=== PATIENT | female | born 1945 | race Asian ===

== ENCOUNTER 2017-10-11 20:07 | Inpatient (IN) | payer OTHER ==
[~2017-10-11] VITALS: Ht 160 cm; Wt 49.0 kg
[2017-10-11 20:07] VITALS: BP_SYST 118
--- NOTE | 2017-10-11 20:07 | NUR ---
Patient to ER bed 1 to gown for evaluation. Side rails up. Report given to ACOSTA FAYE.
--- NOTE | 2017-10-11 20:10 | NUR ---
Pt ambulated into ED AAOx4 c/o general weakness and gradual onset R sided SUÁREZ with R eye droop. Pt mandarin-speaking only. Pt denies N/V/D/visual changes/ slurred speech/SOB/KO. R eye droop present during interview. VSS osiris. No other injuries/complaints per pt/noted. Daughter at bedside. Will continue to monitor.
--- NOTE | 2017-10-11 20:19 | NUR ---
ER Dr. Saul at bedside examining patient.
[2017-10-11] MEDS ORDERED: NACL 0.9% 1,000 ML IV ONE (20:30)
--- NOTE | 2017-10-11 20:35 | NUR ---
Pt taken to radiology via gurney in stable condition
--- NOTE | 2017-10-11 20:50 | NUR ---
# 22 gauge angiocath placed to L AC. Use of asceptic technique. Opsite placed over site. Blood return noted. Flushed with 10 cc of normal saline. No evidence of infiltration noted. Patient tolerated well.
[2017-10-11 21:08] LABS: BASOPHILS # (AUTO) 0.1 K/uL (0.0-0.2); BASOPHILS % (AUTO) 1.9 % (0.0-2.0); EOSINOPHILS % (AUTO) 0.8 % (0.0-4.0); HEMOGLOBIN 11.7 g/dL (12.0-16.0); LYMPHOCYTES # (AUTO) 1.4 K/uL (1.0-5.5); LYMPHOCYTES % (AUTO) 32.3 % (20.5-51.5); MEAN CORPUSCULAR HEMOGLOBIN 31 pg (27-31); MEAN CORPUSCULAR HGB CONC 33 % (32-36); MEAN CORPUSCULAR VOLUME 92 fL (79.0-98.0); MONOCYTES # (AUTO) 0.2 K/uL (0.0-1.0); MONOCYTES % (AUTO) 3.8 % (1.7-9.3); NEUTROPHILS # (AUTO) 2.5 K/uL (1.8-7.7); RED BLOOD CELL COUNT(AUTO) 3.83 MIL/uL (4.2-6.2); WHITE BLOOD COUNT (AUTO) 4.2 K/uL (4.8-10.8)
[2017-10-11] MEDS ORDERED: ASPIRIN 81 MG TAB.CHEW PO ONE (21:15)
[2017-10-11 21:21] LABS: ANION GAP 3 (5-15); CALCIUM 9.1 mg/dL (8.4-11.0); CHLORIDE 107 mmol/L (98-107); CREATININE 0.65 mg/dL (0.55-1.30); GLUCOSE 118 mg/dL (70-99); POTASSIUM 4.4 mmol/L (3.5-5.1); SODIUM SERUM 140 mmol/L (136-145); UREA NITROGEN, BLOOD 21 mg/dL (8-21)
[2017-10-11 21:24] LABS: PLATELET COUNT (AUTO) 38 K/uL (130-430)
[2017-10-11 21:25] LABS: NEUTROPHILS % (AUTO) 61.2 % (40.0-70.0); PROTHROMBIN TIME 10.5 SECS (9.5-12.5)
[2017-10-11 21:37] LABS: ALANINE AMINOTRANSFERASE 17 U/L (12-78); ALBUMIN 3.3 g/dL (3.4-4.8); ASPARTATE AMINOTRANSFERASE 15 U/L (10-37); THYROID STIMULATING HORMONE 1.88 uIu/mL (0.34-4.82); TOTAL BILIRUBIN 0.4 mg/dL (0.0-1.0)
--- NOTE | 2017-10-11 21:44 | NUR ---
Medication administered. Pt tolerated well .No adverse reactions noted.
--- NOTE | 2017-10-11 22:50 | NUR ---
Pt resting comfortably in bed with no signs of distress. Pt reports she is full code and takes no home medications.
[2017-10-11] MEDS ORDERED: ACETAMINOPHEN 325 MG TABLET PO PRN (23:15)
--- NOTE | 2017-10-11 23:27 | NUR ---
Patient will be admitted to [facility]. Admitted to Telemetry unit. Will go to room 120B. Belongings list completed. Summary report printed. Report will be given at bedside.
--- NOTE | 2017-10-11 23:28 | NUR ---
ADMISSION NOTE Received patient from ER via gurney. Patient admitted with diagnosis of New Onset Proptosis. Patient is awake, alert, oriented X 3, Rwandan speaking. Daughter at bedside. Patient oriented to hospital room, call light, toileting, pain management and safety-teach back done. Patient informed that NEYDA Acevedo will be primary nurse and that their room number is 120B. Personal belongings checked and Belongings List documented. Call light within reach.
--- NOTE | 2017-10-11 23:33 | NUR ---
ADM PATIENT FROM ER Received report from NEYDA Munoz. Patient awake, A&O x 4, Mandarin-speaking only. Patient ambulated to ER but feeling weak. Patient on bedrest and telemetry monitoring. Bed locked at lowest position, rails up, and call pryor within reach. Plan of care discussed w/ patient. Standard and fall precautions implemented. Patient reporting discomfort from headache. Patient on RA. No S/S of distress noted. Peripheral IV noted, Left AC 22 G, saline locked, patent and benign. Addendum: 10/12/17 at 0741 by Curtis Jensen RN Daughter translating for patient at bedside. Plan of care discussed w/ patient and daughter.
[2017-10-11 23:38] VITALS: BP_SYST 120
--- NOTE | 2017-10-12 00:21 | NUR ---
Consult Called Reason for consultation: Proptosis Consulting Physician: Reinaldo Tyler MD Child Neurologist Specialty: Neurology Person who was notified:Eileen Joseph by Dr. Hein
--- NOTE | 2017-10-12 04:10 | NUR ---
RN ROUNDING Patient sleeping in bed. No S/S of distress or discomfort noted. Will continue to monitor.
--- NOTE | 2017-10-12 07:20 | NUR ---
RN CLOSING NOTE Report given to NEYDA Vargas. Patient awake, A&O x 4, Mandarin-speaking only. Patient ambulated to ER but feeling weak. Patient on bedrest and telemetry monitoring. Bed locked at lowest position, rails up, and call pryor within reach. Standard and fall precautions implemented. Patient denies pain at this time. Patient on RA. No S/S of distress noted. Peripheral IV noted, Left AC 22 G, saline locked, patent and benign. Patient's daughter is at bedside and translating for patient.
[2017-10-12 07:40] LABS: BILIRUBIN,URINE NEGATIVE (NEGATIVE); BLOOD, URINE NEGATIVE (NEGATIVE); CLARITY/URINE CLEAR (CLEAR); COLOR,URINE YELLOW (YELLOW); GLUCOSE,URINE NEGATIVE (NEGATIVE); KETONES,URINE NEGATIVE (NEGATIVE); LEUKOCYTE ESTERASE ,URINE TRACE (NEGATIVE); NITRITE, URINE NEGATIVE (NEGATIVE); PH,URINE 6.5 (5.0-8.0); PROTEIN URINE NEGATIVE (NEGATIVE); UROBILINOGEN,URINE 0.2 (0.2-1.0)
--- NOTE | 2017-10-12 08:00 | NUR ---
initial notes rec patient awake alert ambulating at the bedside. with ivl on the l ac intact. no infiltration noted. daughter in the room with patient and served as an time clock repairer. denies any chest pain or headache, compare to what she feels yesterday as per daughter. bed in low position and side rails up and locked. call light with reached and knows when to call for assistance. will continue to monitor patient.
[2017-10-12 08:08] VITALS: BP_SYST 116
[2017-10-12 08:08] LABS: BACTERIA,URINE None Seen /HPF (None Seen); RBC,URINE 0-3 /HPF (0-3); WBC,URINE 0-3 /HPF (0-3)
--- NOTE | 2017-10-12 10:00 | NUR ---
rounds pt asleep and no acute distress noted. daughter at bedside with the patient. still awaiting for dr louis matthew to see patient.
--- NOTE | 2017-10-12 10:11 | NUR ---
Hematology consult called: for Dr. Reed, regarding MDS/thrombocytopenia, ordered by Dr. Hein, spoke with Rina.
[2017-10-12 12:00] VITALS: BP_SYST 120
--- NOTE | 2017-10-12 12:30 | NUR ---
rounds pt's daughter stated that pt's vision on the r side is getting worse. stated that her vision is blurry . dr matthew was called and reported pt's complained and with orders. no acute distress noted.
[2017-10-12 13:27] LABS: BASOPHILS % (AUTO) 0.9 % (0.0-2.0); EOSINOPHILS % (AUTO) 1.1 % (0.0-4.0); HEMATOCRIT 35.2 % (36-48); HEMOGLOBIN 11.4 g/dL (12.0-16.0); LYMPHOCYTES # (AUTO) 0.9 K/uL (1.0-5.5); LYMPHOCYTES % (AUTO) 26.9 % (20.5-51.5); MEAN CORPUSCULAR HEMOGLOBIN 30 pg (27-31); MEAN CORPUSCULAR HGB CONC 33 % (32-36); MEAN CORPUSCULAR VOLUME 93 fL (79.0-98.0); MONOCYTES # (AUTO) 0.1 K/uL (0.0-1.0); MONOCYTES % (AUTO) 2.2 % (1.7-9.3); NEUTROPHILS # (AUTO) 2.2 K/uL (1.8-7.7); NEUTROPHILS % (AUTO) 68.9 % (40.0-70.0); RED BLOOD CELL COUNT(AUTO) 3.79 MIL/uL (4.2-6.2); RED CELL DISTRIBUTION WIDTH 15.2 % (9.0-15.0); WHITE BLOOD COUNT (AUTO) 3.3 K/uL (4.8-10.8)
[2017-10-12 13:29] LABS: PLATELET COUNT (AUTO) 35 K/uL (130-430)
[2017-10-12 13:44] LABS: FREE T4 (FREE THYROXINE) 0.8 ng/dL (0.6-1.6); THYROID STIMULATING HORMONE 3.26 uIu/mL (0.34-4.82)
--- NOTE | 2017-10-12 14:00 | NUR ---
rounds still waiting for dr mixon to call for the approval of the myasthenia gravis test ordered by dr louis matthew. no acute distress noted.
[2017-10-12 14:04] LABS: ERYTHROCYTE SEDIMENTATION RATE 16 MM/HR (0-20)
[2017-10-12 16:00] VITALS: BP_SYST 127
--- NOTE | 2017-10-12 16:00 | NUR ---
rounds taking a nap . call light within reached. no sob noted.
[2017-10-12] MEDS ORDERED: ONDANSETRON HCL 4 MG/2 ML VIAL IVP PRN (17:45)
--- NOTE | 2017-10-12 18:15 | NUR ---
rounds seen by dr cheng and with orders. no c/o pain. u s tech at bedside to do carotid doppler test at bedside. denies pain. resting quietly in bed.
[2017-10-12] MEDS ORDERED: FAMOTIDINE 20 MG TABLET PO ONE (18:30)
--- NOTE | 2017-10-12 19:00 | NUR ---
closing notes seen by dr louis matthew at bedside to examine patient. no sob noted.
[2017-10-12 20:00] VITALS: BP_SYST 118
[2017-10-12] MEDS: ZOLPIDEM TARTRATE 5 MG TABLET PO PRN (20:04)
[2017-10-12] MEDS: PYRIDOSTIGMINE BROMIDE 60 MG TABLET PO SCH (20:18)
--- NOTE | 2017-10-12 21:30 | NUR ---
Assisted pt to the bedside commode. On person assist due to pt stated blurry vision. Comfort needs met.
--- NOTE | 2017-10-12 22:30 | NUR ---
Rounds pt a sleep. No distress noted. Breathing symmetrically. non labored breathing. No facial grimacing noted.
--- NOTE | 2017-10-13 00:35 | NUR ---
Rounds pt a sleep. No distress noted. Breathing symmetrically. non labored breathing. No facial grimacing noted.
[2017-10-13 00:43] VITALS: BP_SYST 111
--- NOTE | 2017-10-13 02:30 | NUR ---
Rounds pt a sleep. No distress noted. Breathing symmetrically. non labored breathing. No facial grimacing noted.
--- NOTE | 2017-10-13 04:30 | NUR ---
Rounds pt a sleep. No distress noted. Breathing symmetrically. non labored breathing. No facial grimacing noted.
[2017-10-13 06:18] LABS: BASOPHILS % (AUTO) 0.4 % (0.0-2.0); EOSINOPHILS % (AUTO) 0.9 % (0.0-4.0); HEMATOCRIT 34.6 % (36-48); HEMOGLOBIN 11.4 g/dL (12.0-16.0); LYMPHOCYTES # (AUTO) 1.4 K/uL (1.0-5.5); MEAN CORPUSCULAR HEMOGLOBIN 30 pg (27-31); MEAN CORPUSCULAR HGB CONC 33 % (32-36); MEAN CORPUSCULAR VOLUME 92 fL (79.0-98.0); MONOCYTES # (AUTO) 0.1 K/uL (0.0-1.0); MONOCYTES % (AUTO) 2.4 % (1.7-9.3); NEUTROPHILS # (AUTO) 2.3 K/uL (1.8-7.7); NEUTROPHILS % (AUTO) 60.3 % (40.0-70.0); RED BLOOD CELL COUNT(AUTO) 3.77 MIL/uL (4.2-6.2); RED CELL DISTRIBUTION WIDTH 14.5 % (9.0-15.0); WHITE BLOOD COUNT (AUTO) 3.8 K/uL (4.8-10.8)
--- NOTE | 2017-10-13 07:00 | NUR ---
Report given SBAR method. called daughter regarding pt's status and MRI scheduled this morning.
--- NOTE | 2017-10-13 07:25 | NUR ---
Initial Note Received report from the night nurse Wali Moran at bedside. Pt AOX4. No signs of distress noted at this time. Bed is at lowest position. Call light within reach. Will continue to monitor pt.
[2017-10-13 07:27] LABS: PLATELET COUNT (AUTO) 29 K/uL (130-430)
--- NOTE | 2017-10-13 07:28 | NUR ---
Critical Value Platelets 29. Called Dr. Hein. [place] has paged. Dr. Hein. Waiting for the MD to call back.
[2017-10-13 08:00] VITALS: BP_SYST 119
[2017-10-13] MEDS: FAMOTIDINE 20 MG TABLET PO SCH (09:14)
[2017-10-13] MEDS: PYRIDOSTIGMINE BROMIDE 60 MG TABLET PO SCH ×3 (09:14→20:49)
[2017-10-13] MEDS ORDERED: GADOPENTETATE DIMEGLUMINE 15 ML VIAL IV ONE (09:15)
--- NOTE | 2017-10-13 10:10 | NUR ---
Nutrition Update Deion Scale 18 noted. Pt admitted for new onset proptosis. Diet: regular BMI: 19.9 kg/m2 RD to follow per nutrition care standards.
--- NOTE | 2017-10-13 11:30 | NUR ---
RN Rounds Pt awake and family member at bedside. No signs of distress noted at this time. Will continue to monitor pt.
[2017-10-13 12:26] VITALS: BP_SYST 115
--- NOTE | 2017-10-13 14:45 | NUR ---
Dietitian Recommendations * Recommend continuing regular diet per LP, RD Please refer to Nutrition Assessment for details.
--- NOTE | 2017-10-13 15:25 | NUR ---
RN Rounds Pt resting and no signs of distress noted at this time. Bed is at lowest position. Call light within reach.
[2017-10-13 16:21] VITALS: BP_SYST 101
--- NOTE | 2017-10-13 18:17 | NUR ---
Closing Note Pt AXO4. No signs of distress noted at this time. Bed is at lowest position. Call light within reach. Pt's platelets 29. Dr. Hein is aware. As per MD there is a hematology consult with Dr. Reed.
--- NOTE | 2017-10-13 19:43 | NUR ---
Paged Dr. Tyler Paged Dr. Tyler, dialed [phone], s/w Marisol.
--- NOTE | 2017-10-13 19:45 | NUR ---
PM SHIFT ASSESSMENT Received patient lying in bed, aox4, mandarin speaking, daughter at bedside to help with translation. Patient's vital signs stable. Denies any pain or headache at this time. Right side of face with slight drooping, patient's right eye swollen but able to see with blurry vision. Oriented patient to use call light for nurse assistance for safety measures. Daughter and patient updated on plan of care. Both verbalized understanding.
[2017-10-13 20:17] VITALS: BP_SYST 103
[2017-10-13] MEDS: ZOLPIDEM TARTRATE 5 MG TABLET PO PRN (20:49)
--- NOTE | 2017-10-13 21:54 | NUR ---
RN ROUNDS Patient awake, denies any headache or pain at this time. Due medications administered, ambien 5 mg po given to help promote with sleep. Daughter at bedside, updated on plan of care and that Dr. Alin Tyler will be in to see patient in the am and not tonight. Reoriented to use call light for nurse assistance, safety measures in place, will monitor.
--- NOTE | 2017-10-14 00:14 | NUR ---
RN ROUNDS Patient asleep, vital signs stable. Safety measures in place, call light within reach, will monitor.
[2017-10-14 00:53] VITALS: BP_SYST 99
--- NOTE | 2017-10-14 02:55 | NUR ---
RN ROUNDS Patient asleep. Safety measures in place, call light within reach, will monitor.
--- NOTE | 2017-10-14 04:40 | NUR ---
RN ROUNDS Patient awake, denies any pain or discomfort at this time, requested for ear plugs and warm water, needs attended to. Patient reoriented to use call light for nurse assistance, will monitor.
--- NOTE | 2017-10-14 06:23 | NUR ---
RN ROUNDS Patient awake denies any headache. No significant changes. Needs attended to. Call light remains within reach, will monitor until report given to am nurse.
--- NOTE | 2017-10-14 07:20 | NUR ---
Initial Note Received report from the night nurse Lis Moran at bedside. Pt AOX4. No signs of distress noted at this time. Bed is at lowest position. Call light within reach. Pt's daughter has already spoken to Dr. Tyler.
[2017-10-14 07:50] VITALS: BP_SYST 110
[2017-10-14] MEDS: PYRIDOSTIGMINE BROMIDE 60 MG TABLET PO SCH ×2 (08:34→15:22)
[2017-10-14] MEDS: FAMOTIDINE 20 MG TABLET PO SCH (08:34)
--- NOTE | 2017-10-14 11:30 | NUR ---
RN Rounds Pt resting and no signs of distress noted. Bed is at lowest position. Call light within reach.
[2017-10-14 12:09] VITALS: BP_SYST 113
[2017-10-14] MEDS ORDERED: MES60 PO (12:18)
--- NOTE | 2017-10-14 16:00 | NUR ---
Discharge Note Pt has been discharged home as ordered by Dr. Hein. Pt is in stable condition at the time of discharge. No signs of distress noted. Transitional care documents, prescription document, and instructions given to pt's daughter. IV line removed, pressure and gauze applied. No signs of bleeding noted. ID band removed.
[2017-10-15 12:11] LABS: FOLATE (FOLIC ACID) >20.0 ng/mL (>3.0)
[2017-10-15 13:11] LABS: HEPATITIS A AB, IgM Negative (Negative); HEPATITIS B CORE AB, IgM Negative (Negative); HEPATITIS B SURFACE AG Negative (Negative)
--- NOTE | 2017-10-15 16:10 | NUR ---
Discharge Follow Up Phone Call: [employer]UC[employer] PRESCHOOL TEACHER called and left a voice mail for pt ([phone]). [employer] EDUCATION PRESCHOOL TEACHER called and spoke with pt's dtr, Marleni ([phone]). Pt's dtr states that pt is doing well overall; pt's prescriptions have been filled; pt's dtr had some questions regarding pt's medication, but there are no questions regarding pt's discharge instructions; pt does not have a PCP. Per pt's dtr's request [facility] provided pt's dtr with the contact information for Dr. Reinaldo Tyler ([phone]). Pt's dtr states that she will contact Dr. Tyler's office regarding pt's medication and follow up care. Pt's dtr is agreeable to continued follow up. Guest Relations Coordinator will continue to follow up.
[2017-10-16 05:12] LABS: HAPTOGLOBIN 56 mg/dL (34-200)
--- NOTE | 2017-10-19 09:49 | NUR ---
Discharge Follow Up Phone Calls: [employer] HE[employer] TENDER called and left a voice mail for pt's dtr, Marleni ([phone]), on 10/18/17. [employer] HE[employer] TENDER called and spoke with pt's dtr today. Pt's dtr states that pt is doing well and pt has an appointment to follow up with Dr. Tyler next week. Pt's dtr did not express any other needs or concerns and denied the need for additional follow up at this time. No further follow up phone calls required at this time.
== END 2017-10-14 16:00 | disposition home or self-care (01) | DRG 74 ==
LOC: SED 20:07 → STU 23:04
PROVIDERS: ADMIT Internal Medicine; ATTEND Internal Medicine
DX: G70.89 Other specified myoneural disorders (principal); D61.818 Other pancytopenia; D69.6 Thrombocytopenia, unspecified; H51.21 Internuclear ophthalmoplegia, right eye; Z88.2 Allergy status to sulfonamides
CPT/HCPCS: 36415; 70450-TC; 70553; 71045; 80053; 81000-TC; 82607; 82746; 83010; 83615-TC; 84439; 84443-TC; 85025; 85044-TC; 85610-TC; 85651-TC; 85730-TC; 86705; 86709; 87040-TC; 87086; 87340; 93005; 93880; 96360; 99285; A9579; J2405; J7030